=== PATIENT | female | born 1985 | race Caucasian/White ===

== ENCOUNTER 2024-12-14 14:18 | Outpatient (CLI) | payer OTHER, SELFPAY ==
[2024-12-16 22:42] LABS: HPV Source Cervix
[2024-12-27 15:59] LABS: Pap Test Reviewed by Pathologi Done; Pap Test Screened Manually Done
== END 2024-12-14 14:19 | disposition home or self-care (01) ==
PROVIDERS: Visit Provider Physician Assistant
DX: R10.11 Right upper quadrant pain (principal); Z12.4 Encounter for screening for malignant neoplasm of cervix; Z11.51 Encounter for screening for human papillomavirus (HPV); Z13.6 Encounter for screening for cardiovascular disorders
CPT/HCPCS: 80053; 80061; 87624; 87625; 88141; 88142; 88175

== ENCOUNTER 2024-12-18 17:25 | Outpatient (CLI) | payer OTHER, SELFPAY ==
--- NOTE | 2024-12-18 17:30 | CRLHL7_ITS ---
For Patients: As a result of the Century Cures Act, medical imaging exams and procedure reports are released immediately into your electronic medical record. You may view this report before your referring provider. If you have questions, please contact your health care provider. INDICATION: Right upper quadrant pain COMPARISON: none TECHNIQUE: Real time nunez scale imaging and color Doppler analysis was performed of the right upper quadrant. FINDINGS: The patient`s liver is of normal size and has uniform echogenicity. There is a normal appearance of the hepatic IVC and proximal abdominal aorta. There is no evidence of ascites. The gallbladder is of normal size and there is no evidence of intraluminal stones or sludge. The gallbladder wall measures 1.4 mm in thickness. The common bile duct is of normal size and measures 0.7 mm in diameter at the level of the sharda hepatis. The pancreas appears normal. There is no evidence of a stone or hydronephrosis within the right kidney. The right kidney measures 11.3 cm in length. IMPRESSION: Normal right upper quadrant ultrasound. Dictated by Sundeep Gaston MD @ 12/18/2024 7:13:11 PM (Electronically Signed)
== END 2024-12-18 17:26 | disposition home or self-care (01) ==
LOC: US 17:26
PROVIDERS: Visit Provider Physician Assistant
DX: R10.11 Right upper quadrant pain (principal)
CPT/HCPCS: 76705